=== PATIENT | male | born 1955 | race Caucasian/White ===

== ENCOUNTER 2019-11-16 15:18 | Emergency (ER) | payer OTHER, SELFPAY ==
--- NOTE | 2019-11-16 15:25 | W.ED.GENAD ---
Discharge Plan Disposition Patient Disposition: HOME Condition: Stable Discharge Details Chief Complaint: Trauma Clinical Impression: Fracture of proximal humerus, Closed head injury Primary Care Provider: None,None ED Provider: Josiane Hensley Home Meds and New Rx's Prescriptions: New oxycodone 5 mg tablet 5 mg PO Q6H PRN (Reason: pain) Qty: 14 RF: 0 Continued lisinopril 40 mg Tablet 40 mg PO DAILY RF: 0 Enbrel 50 mg/mL (1 mL) Syringe 50 mg SUBCUT QWEEK RF: 0 metoprolol succinate 25 mg Capsule,Sprinkle,Er 24hr 25 mg PO DAILY RF: 0 Discharge Instructions Instructions: Head Injury (ED), Proximal Humerus Fracture (ED) Additional Instructions: Rest, ice, and elevate the affected area as much as possible. Keep the sling on until follow-up with orthopedics. Alternate tylenol and motrin as needed and directed for pain. Take the oxycodone for pain not relieved with Tylenol or Motrin. Call your primary care doctor tomorrow for referral to orthopedics near home for follow-up within the next 1 to 2 weeks. Return to any emergency department if you develop any worsening or concerning symptoms. Discharge Data Discharge Date/Time-TO BE ENTERED AT DEPARTURE: 11/16/19 17:04 Discharge Physician: Josiane Hensley Medical Decision Making 64-year-old male presents with left shoulder pain after fall while skiing prior to arrival. [facility] he was wearing a helmet and hit the left side of his head but denies any headache, LOC, vomiting, neck pain, facial pain. He denies any other injury than his left shoulder. He was able to ambulate after the fall. Patient is holding left arm close to body. He has tenderness palpation left anterior shoulder. No obvious deformity. Neurovascular intact. Limited range of motion due to pain. Differential diagnosis includes fracture, dislocation, AC separation, sprain, or contusion. Patient given a dose of ibuprofen and referred for x-ray. X-ray noted comminuted fracture humeral head and neck. He was placed in a sling. He was neurovascular intact. Patient is from [place] and states he will follow-up with his PCP with referral to orthopedics. Advised on the importance of RICE. He declined any additional pain medication here. He was given a prescription for oxycodone. Usual and customary return precautions given prior to discharge. Medical Records Medical records reviewed: Yes I reviewed the patient's medical records. Imaging Data Radiologic Study: Radiologist's impression: XR Left Shoulder Exam date and time: 11/16/2019 4:11 PM Age: 64 years old Clinical indication: Injury or trauma; Fall; Initial encounter; Blunt trauma (contusions or hematomas; Arm, upper; Left TECHNIQUE: Imaging protocol: XR Left shoulder. Views: 2 or more views. COMPARISON: No relevant prior studies available. FINDINGS: Bones/joints: Comminuted displaced fractures of the humeral head. Minimally displaced fracture of the humeral neck. Glenohumeral joint is aligned Soft tissues: Soft tissue swelling of the shoulder IMPRESSION: Comminuted displaced fractures of the humeral head. Minimally displaced fracture of the humeral neck. HPI General Mode of arrival: ambulatory. Date/Time Provider Initiated Documentation: 11/16/19 15:24. Limitations to Documentation: no limitations. Information obtained by: patient. History of Present Illness 64 year old M presents to the emergency department with the chief complaint of L shoulder pain , Quality is described as aching and sharp, and is localized to the left and upper extremity (shoulder). Patient extremity (down L arm). Patient started experiencing this hour(s) (2) and it has been constant. Immobilization improves symptom(s), Movement worsens symptoms . Patient notes no other symptoms.. Patient did receive the following treatments prior to arrival, none Related Data Home Medications Medication Instructions Recorded Confirmed Enbrel 50 mg SUBCUT QWEEK 11/16/19 11/16/19 lisinopril 40 mg PO DAILY 11/16/19 11/16/19 metoprolol succinate 25 mg PO DAILY 11/16/19 11/16/19 oxycodone 5 mg PO Q6H PRN #14 tab 11/16/19 Previous Rx's Medication Instructions Recorded oxycodone 5 mg PO Q6H PRN #14 tab 11/16/19 Allergies Allergy/AdvReac Type Severity Reaction Status Date / Time Penicillins Allergy Mild Skin Rash Unverified 11/16/19 15:24 Sulfa (Sulfonamide Allergy Mild Skin Rash Unverified 11/16/19 15:24 Antibiotics) Review of Systems All systems reviewed & are unremarkable except as noted in HPI and below Constitutional Constitutional: Reports as per HPI, Denies chills and Denies fever(s) Eyes Eyes: Denies blurry vision ENT Ears, Nose, Mouth, and Throat: Denies dizziness, Denies sore throat and Denies throat swelling Cardiovascular Cardiovascular: Denies chest pain and Denies dyspnea Respiratory Respiratory: Denies cough and Denies dyspnea Gastrointestinal Gastrointestinal: Denies abdominal pain, Denies diarrhea and Denies vomiting Genitourinary Genitourinary: Denies hematuria and Denies dysuria Musculoskeletal Musculoskeletal: Denies back pain, Denies numbness and Reports other (L shoulder pain ) Integumentary/Breasts Skin/Breast: Denies lesions and Denies rash Neurologic Neurologic: Denies dizziness, Denies focal weakness and Denies numbness Allergic/Immunologic Allergic/Immunologic: Denies throat swelling [facility] Medical History HTN (hypertension) (Chronic) Rheumatoid arthritis (Chronic) Surgical History No significant past surgical history (Acute) Social History Smoking/Tobacco Use Status: Never Alcohol Intake: current Alcohol Intake frequency: a few times a week Substance use type: does not use Do you feel safe at home: Yes Do you feel safe in your relationship?: Yes Exam Const General: cooperative, healthy appearing and no acute distress HENMT Head: normal to inspection, normocephalic and atraumatic Ears: hearing grossly normal bilaterally and external ears normal General nose exam: external nose abnormal Face and sinus: normal facial exam Mouth: oral mucosae normal Throat: posterior oropharynx normal Eyes General: appearance normal, both eyes and all related structures Eyelids: eyelids normal Conjunctivae: conjunctivae normal Pupils: PERRL EOM: EOM intact bilaterally Neck Neck: normal visual inspection, full ROM, no lymphadenopathy, no meningeal signs, trachea midline and supple Chest Chest: normal inspection of the chest and normal palpation of entire chest wall Resp Effort & Inspection: normal respiratory effort and able to speak in complete sentences Auscultation: clear to auscultation bilaterally Cardio Rate: regular rate Rhythm: regular rhythm GI Inspection: normal to inspection and non-distended Palpation: soft, no guarding, no masses, not rigid and nontender Auscultation: normal bowel sounds Back/Spine/Pelvis Cervical Spine: No cervical spinal tenderness Thoracic/Lumbar Spine: thoracic and lumbar spine normal to inspection, No thoracic spinal tenderness and No lumbar spinal tenderness Skin General skin exam: no rashes or lesions noted Neuro General: alert, awake, oriented x3 and gait normal Motor: muscle tone normal throughout Other: Muscle strength L hand 5/5. Full ROM RUE, b/l LE without evidence of trauma or pain. Extrem Other: Holding L arm close to body. Tenderness to palpation L anterior shoulder. No obvious deformity noted. No edema, ecchymosis or erythema noted to left shoulder. No tenderness to palpation of left elbow. No pain with range of motion in left elbow, left wrist or left hand. Psych Appearance: grossly normal Affect: normal affect
[2019-11-16 15:26] VITALS: BP 149/87; PULSE 84; RESP 16; TEMP 37.1; O2SAT 98
--- NOTE | 2019-11-16 15:30 | DI.RAD_ITS ---
EXAM: XR SHOULDER LT COMPLETE 2+V INDICATION: s/p fall, r/o acute fx/dislocation. COMPARISON: No exams were available for comparison TECHNIQUE: 2D digital imaging was performed. FINDINGS: There is a minimally displaced fracture involving the lateral aspect of the humeral head including th e greater tuberosity. The glenohumeral joint and acromioclavicular joint appear intact. There are d egenerative changes seen in the acromioclavicular joint. There is soft tissue swelling about the kojo ulder. IMPRESSION: Mildly displaced fracture involving the humeral head. A CT scan of the shoulder should be considered to evaluate the extent of the fracture.
[2019-11-16] MEDS: Ibuprofen 600 MG TAB PO (15:45)
--- NOTE | 2019-11-16 16:37 | DI.VRAD_ITS ---
PROCEDURE INFORMATION: Exam: XR Left Shoulder Exam date and time: 11/16/2019 4:11 PM Age: 64 years old Clinical indication: Injury or trauma; Fall; Initial encounter; Blunt trauma (contusions or hematomas; Arm, upper; Left TECHNIQUE: Imaging protocol: XR Left shoulder. Views: 2 or more views. COMPARISON: No relevant prior studies available. FINDINGS: Bones/joints: Comminuted displaced fractures of the humeral head. Minimally displaced fracture of the humeral neck. Glenohumeral joint is aligned Soft tissues: Soft tissue swelling of the shoulder IMPRESSION: Comminuted displaced fractures of the humeral head. Minimally displaced fracture of the humeral neck. Dictated and Authenticated by: Leo Metz MD. Ordering:JAY Joshua MD
[2019-11-16 17:06] VITALS: BP 136/85; PULSE 77; RESP 18; TEMP 36.9; O2SAT 98
== END 2019-11-16 17:04 | disposition home or self-care (01) ==
PROVIDERS: Emergency Provider Physician Assistant
DX: S42.292A Other displaced fracture of upper end of left humerus, initial encounter for closed fracture (principal); V00.321A Fall from snow-skis, initial encounter; Y93.23 Activity, snow (alpine) (downhill) skiing, snowboarding, sledding, tobogganing and snow tubing; I10 Essential (primary) hypertension
CPT/HCPCS: 23600; 73030; L3650